=== PATIENT | male | born 1980 | race African-American/Black ===

== ENCOUNTER 2022-01-05 10:34 | Emergency (ER) | payer SELFPAY ==
[~2022-01-05] VITALS: Ht 188 cm; Wt 116.0 kg
[2022-01-05] MEDS ORDERED: IBUPROFEN 400MG TABLET PO ONE (12:15)
[2022-01-05 12:31] VITALS: BP 175/114
== END 2022-01-05 12:56 | disposition left against medical advice (07) ==
LOC: ER 10:34
DX: M54.59 Other low back pain (principal); I10 Essential (primary) hypertension
CPT/HCPCS: 99282